=== PATIENT | male | born 1965 | race Caucasian/White ===

== ENCOUNTER → 2019-08-30 11:26 | Outpatient (CLI) | payer OTHER, SELFPAY ==
[2019-08-30 11:49] LABS: RBC Urine None Seen (0-5/HPF); WBC Urine None Seen (0-5/HPF)
[2019-08-30 12:44] LABS: Add Manual Diff / Slide Review NO; Basophils Absolute Auto 100 /uL (0-100); Eosinophils Absolute Auto 200 /uL (0-450); Eosinophils Percent Auto 2.3 % (2-4); Hematocrit 44.9 % (41-53); Hemoglobin 14.9 g/dL (13.5-17.5); Lymphocytes Absolute Auto 2600 /uL (1100-4500); Lymphocytes Percent Auto 31.7 % (25-40); Mean Corpuscular HGB Conc 33.2 % (30-36); Mean Corpuscular Hemoglobin 28.8 PG (26-34); Mean Corpuscular Volume 86.9 fL (80-100); Monocytes Absolute Auto 600 /uL (0-900); Monocytes Percent Auto 7.9 % (3-14); Neutrophils Absolute Auto 4700 /uL (1500-7000); Neutrophils Percent Auto 57.1 % (50-75); Platelet Count 263 X10^3/uL (150-400); Red Blood Cell Count 5.17 X10^6/uL (4.5-5.9); Red Cell Distribution Width 13.7 % (11.6-14.8); White Blood Cell Count 8.2 X10^3/uL (4.5-11.0)
[2019-08-30 13:04] LABS: Appearance Urine UA CLEAR; Bilirubin Urine UA NEGATIVE (NEGATIVE); Color Urine UA YELLOW; Glucose Urine UA NEGATIVE (Negative); Ketones Urine UA NEGATIVE (NEGATIVE); Leukocyte Esterase Urine UA NEGATIVE (NEGATIVE); Nitrite Urine UA NEGATIVE (Negative); Occult Blood Urine UA NEGATIVE (Negative); Protein Urine UA NEGATIVE (Negative); Urobilinogen Urine UA 0.2 E.U./dL (0.2); pH Urine UA 5.5 (4.5-8.0)
[2019-08-30 13:19] LABS: Hemoglobin A1C% w Est Avg Glu 5.3 % (4.0-6.0)
[2019-08-30 13:53] LABS: BUN Creatinine Ratio 23.8 (6-22); Blood Urea Nitrogen 19 mg/dL (9-20); Calcium 9.8 mg/dL (8.4-10.2); Carbon Dioxide 25 mmol/L (22-32); Chloride 103 mmol/L (98-107); Estimated Glomerular Filt Rate > 60.0 mL/min (>60); Glucose 96 mg/dL (70-100); HEMOLYSIS 16 (0-50); Sodium 139 mmol/L (137-145)
[2019-08-30 13:57] LABS: Bacteria Urine Occasional (0-1); Culture Indicated Urine Cult Not Indicated; Squamous Epithelial Cell Urine 0-1 /HPF (0-5/HPF)
== END ==
PROVIDERS: Family Provider Family Medicine; PCP Family Medicine; Visit Provider Orthopaedic Surgery
DX: Z01.818 Encounter for other preprocedural examination (principal); Z01.812 Encounter for preprocedural laboratory examination; N39.9 Disorder of urinary system, unspecified; Z13.1 Encounter for screening for diabetes mellitus; R73.9 Hyperglycemia, unspecified
CPT/HCPCS: 36415; 80048; 81001; 83036; 85025; 93005

== ENCOUNTER 2019-10-05 09:38 | Inpatient (IN) | payer OTHER, SELFPAY ==
[2019-09-26 07:34] VITALS: BMI 34.2
[2019-10-05] VITALS (18 sets, daily range): BP systolic 95–132; BP diastolic 48–81; PULSE 49–65; RESP 8–19; TEMP 35.8–36.6; O2SAT 90–99; BMI 34.2
--- NOTE | 2019-10-05 | DI.RAD.S_ITS ---
PROCEDURE: XR PELVIS 1-2V INDICATIONS: INTER OP RIGHT HIP ARTHROPLASTY TECHNIQUE: Intra-operative view of the pelvis and hip acquired. COMPARISON: None. FINDINGS: Bones: Intraoperative devices prior to placement of arthroplasty prostheses are in expected positions. No fractures or suspicious bony lesions. Soft tissues: Overlying surgical retractors are present, along with other intraoperative changes. IMPRESSION: Normal alignment in preparation for placement of final components of right total hip arthroplasty. Dictated by: Grey Hardy M.D. on 10/05/2019 at 15:42 Approved by: Grey Hardy M.D. on 10/05/2019 at 15:42
--- NOTE | 2019-10-05 06:00 | DI.RAD.S_ITS ---
PROCEDURE: XR HIP W PEL IF DONE RT 2V INDICATIONS: post op films TECHNIQUE: AP pelvis with lateral view(s) of the right hip(s). COMPARISON: [facility], , XR PELVIS 1-2V, 10/05/2019, 14:30. FINDINGS: Bones: No fractures or dislocations. Pelvic ring appears intact. No suspicious bony lesions. Right hip arthroplasty is present. Postsurgical changes are noted. Hardware is intact. Soft tissues: The visualized bowel gas pattern is normal. No suspicious soft tissue calcifications. IMPRESSION: Right hip arthroplasty and postsurgical changes as above. Dictated by: Chyna Kelsey M.D. on 10/05/2019 at 16:26 Approved by: Chyna Kelsey M.D. on 10/05/2019 at 16:26
[2019-10-05] MEDS: PREGABALIN 75 MG CAPSULE PO (10:35)
[2019-10-05] MEDS: MELOXICAM 7.5 MG TABLET 15 MG PO (10:35)
[2019-10-05] MEDS: ACETAMINOPHEN 325 MG TABLET 975 MG PO (10:36)
[2019-10-05] MEDS: LACTATED RINGERS 1,000 ML 42 ML IV ×2 (10:53→14:58)
[2019-10-05] MEDS: VANCOMYCIN 1,000 MG/200 ML PIGGYBACK 200 MG IV (11:03)
--- NOTE | 2019-10-05 12:12 | PM.PREOP ---
Pre-operative Note Interval Note History & Physical reviewed/Exam performed by Physician: Yes Changes to H&P: No
--- NOTE | 2019-10-05 12:32 | PM.OP.1 ---
Operative Date/Time/Diagnoses Date of procedure: 10/05/19 Time of procedure: 12:57 Pre-op diagnosis: Severe right hip osteoarthritis Post-op diagnosis: same Procedure & Clinicians Procedure: Right total hip arthroplasty Same procedure as scheduled: Yes Indications: The patient has had progressively worsening right hip pain with radiographic changes consistent with arthritis. Non-operative management has failed and the patient has requested total hip replacement. The risks, benefits and alternatives to surgery were discussed with the patient prior to proceeding. Risks discussed included, but were not limited to, failure to relieve pain, leg length discrepancy, dislocation, stiffness, infection, nerve damage, deep venous thrombosis, pulmonary embolism, stroke, coma, heart attack, permanent paralysis and , as well as the potential need for eventual revision of the prosthetic. Surgeon: Faith Oh Dry Cleaning Attendant: Emilie White Anesthesia Type: General and Spinal Operative Notes Findings: Severe right hip osteoarthritis, good stability Closure Type: primary Specimen(s): none sent Prosthetic devices, grafts, tissues, transplants, or devices: Oh and Nephew 5 anthology stem standard offset, R3 cup 58 by 36, 36 by +0, 2 screws 15mm Applied: drain(s) Estimated Blood Loss (mL): 250 Blood products transfused: none Procedure in detail: The patient was seen in the pre-operative area, where the patient identified the right hip as the operative site and this was marked with my initials. The patient received pre-operative antibiotics and was taken to the operating room and placed on the operative table in the left lateral decubitus position after satisfactory anesthesia. A multimedia services coordinator out was performed. The right leg was prepared from the ankle to the iliac crest with ChloroPrep in the usual fashion and draped through sterile drapes. The hip was approached through an approximately 20 cm incision centered over the greater trochanter and curving gently posteriorly as it went proximally. This was carried sharply to the fascia debora, which was divided and retracted with a self retaining retractor. The trochanteric bursa was excised with care being taken to avoid the sciatic nerve, which was identified and protected throughout the case. The short external rotators were incised and the capsulomuscular flap was raised and tagged for later repair. The hip was dislocated, and a femoral neck osteotomy performed approximately 15 mm above the lesser trochanter. Retractors were placed around the femur. The canal was opened with a box cutting osteotome, followed by a T handled reamer and a lateralizing reamer. The chili pepper broach was then used, followed by sequential broaching until there was good stability of the broach in the femur. Retractors were placed to expose the acetabulum. The labrum and central soft tissues were removed. Reaming was performed initially going up in 2 mm increments, then 1 mm increments until good bite was obtained with an odd sized reamer. The cup 1 mm larger than the last reamer was then inserted using the appropriate anteversion guides. Bone graft was packed into a fairly large anterior cyst in the acetabulum. The cup was stabilized with 2 screws both of which had good bite. A trial neutral liner was placed. The broach was placed in the canal. A trial head and neck were then placed and the hip relocated and checked for leg length and stability. An intraoperative film confirmed the component position and no evidence of fracture. The patient was stable in the position of sleep, of squatting, and could be put through a range of motion with 45 degrees internal rotation without dislocation. At 90 degrees flexion, internal rotation to 80 was possible before dislocation. This was felt to be satisfactory and the appropriate components were opened, and the trials were removed. The acetabular liner was impacted into position. The final stem was then impacted into the prepared femoral canal. A brief Betadine soak was performed while trialing with head options. The hip was meticulously irrigated with normal saline. Finally the femoral head was impacted onto the stem. The acetabulum was cleared of all material and the hip relocated one final time. The capsulomuscular flap was then repaired to the greater trochanter though an awl hole using the tag sutures. The short external rotators were repaired with a nonabsorbable suture. A deep drain was placed and brought out anteriorly. The fascia debora was closed with Vicryl. The subcutaneous layer was closed with barbed sutures and SteriStrips. An Aquacel Ag dressing was applied and the patient was taken to recovery having tolerated the procedure well. Complications: none Post-operative Condition: stable Disposition: Acute Care Plan for aftercare: The patient will be maintained on a standard total hip replacement protocol with weight bearing as tolerated and posterior hip precautions. The patient will receive Aspirin and sequential compression devices for DVT prophylaxis. The patient will be discharged home when safe for the home environment.
[2019-10-05] MEDS: CEFAZOLIN 2 GM/100 ML FROZ.PIGGY IV ×2 (12:55→21:18)
[2019-10-05] MEDS: TRANEXAMIC ACID 1,000 MG VIAL 1000 MG INJ (13:05)
--- NOTE | 2019-10-05 13:20 | SUR.OPER ---
Lateral on padded OR bed. Gel axillary roll. Arms secured on padded armboard with pillow supporting top arm. Padded hip positioner braces x4 - anterior and posterior chest and pelvis. Additional gel pad used anterior pelvis. Gel pad under bottom leg from knee to foot and secured with tape over sheet.
[2019-10-05] MEDS: BUPIVACAINE LIPOSOME 266 MG/20 ML VIAL INJ (13:27)
[2019-10-05] MEDS: BUPIVACAINE 0.25% W/ EPI 30 ML VIAL 60 ML INJ (13:27)
[2019-10-05] MEDS: EPINEPHrine 1 MG/ML AMPUL IM (13:29)
--- NOTE | 2019-10-05 16:16 | SUR.PHASEI ---
HV drain unclamped as per VVO from Dr. Oh. HV patent with red fluid.
--- NOTE | 2019-10-05 17:19 | SUR.PHASEI ---
Report called to Darian.
--- NOTE | 2019-10-05 17:35 | SUR.PHASEI ---
Patient transferred to the floor. Report given to Darian. VS stable. IV saline locked. Rt Hip drsg cdi. HV patent with minimal drainage. +pp x2, unable to move ino feet but reported normal sensation to right foot. Walker and belongings bag with patient. Spouse notified patient had been transferred to the room.
[2019-10-05] MEDS: LACTATED RINGERS 1,000 ML 125 ML IV (18:42)
[2019-10-05] MEDS: DOCUSATE 100 MG CAPSULE PO (21:18)
[2019-10-05] MEDS: IBUPROFEN 400 MG TABLET PO (21:18)
[2019-10-05] MEDS: ASPIRIN EC 81 MG TABLET PO (21:18)
[2019-10-05] MEDS: ACETAMINOPHEN 325 MG TABLET 650 MG PO (21:18)
[2019-10-06] MEDS: IBUPROFEN 400 MG TABLET PO ×4 (00:38→13:44)
[2019-10-06] MEDS: OXYCODONE IR 5 MG TABLET PO ×5 (01:06→14:01)
[2019-10-06] MEDS: LACTATED RINGERS 1,000 ML 125 ML IV (03:34)
[2019-10-06] MEDS: CEFAZOLIN 2 GM/100 ML FROZ.PIGGY IV (04:36)
[2019-10-06 04:54] VITALS: BP 102/61; PULSE 67; RESP 18; TEMP 37.3; O2SAT 96
[2019-10-06 05:49] LABS: Hematocrit 38.6 % (41-53); Hemoglobin 13.1 g/dL (13.5-17.5)
[2019-10-06 07:27] VITALS: BP 109/63; PULSE 67; RESP 16; TEMP 37.1; O2SAT 96
[2019-10-06] MEDS: ACETAMINOPHEN 325 MG TABLET 650 MG PO ×2 (08:08→13:45)
[2019-10-06] MEDS: DOCUSATE 100 MG CAPSULE PO (08:08)
[2019-10-06] MEDS: ASPIRIN EC 81 MG TABLET PO (08:08)
--- NOTE | 2019-10-06 10:30 | PT.IIE ---
Current Diagnoses Unilateral primary osteoarthritis, right hip (10/05/19) Pain in right hip (10/05/19) Surgery Performed Operation Date: 10/05/19 12:15 Actual Procedures p Total Hip Arthroplasty(Right) - Faith Oh MD Surgical History (Last Updated 09/26/19 @ 08:13 by Monica Banda, RN) History of colonoscopy (Acute) History of liver biopsy (Acute ~1995) Medical History (Last Updated 09/26/19 @ 08:11 by Monica Banda RN) Borderline hypertension (Acute) Cataract (Acute) Diverticulitis (Acute ~2016) Elevated WBCs (Acute ~1995) Kidney stones (Acute) Melanoma (Acute ~2016) Osteoarthritis (Acute) Pneumonia (Acute) Tingling of both feet (Acute) Physical Therapy Inpatient Evaluation/Re-Eval M1 PT/OT-IP Prior Functional Status Start: 10/06/19 09:17 Freq: NEEDED Status: Active Protocol: Document 10/06/19 10:16 AW (Rec: 10/06/19 10:30 AW [email or web address]) Medical Review Prior Functional Status Medical History Reviewed Yes Diet/Fluid Consistency Regular Communication WNL Mobility and Gait Prior to two weeks ago, pt was independent without assistive device. In the past two weeks , pain became bad enough that he was using a 4WW at all times Activities of Daily Living and IADL's Independent Social History Household Members spouse Living Arrangements House Number of Floors (Floors) Two Floors Number of Stairs To Enter/Railing? 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 He lives with his who is able to assist as needed without limitation. M2 PT-IP Current Condition Start: 10/06/19 09:17 Freq: NEEDED Status: Active Protocol: Document 10/06/19 10:16 AW (Rec: 10/06/19 10:30 AW [email or web address]) Physical Therapy Current Condition Current Condition Evaluation Date 10/06/19 Treatment Diagnosis s/p R LUZ with posterior approach, impaired mobility Precautions Posterior Hip Precautions No Hip Flexion > 90 degrees,No Hip Internal Rotation,No Hip Adduction Weight Bearing Status Weight Bearing Status Weight Bear as Tolerated M3 PT-IP Subjective Start: 10/06/19 09:17 Freq: NEEDED Status: Active Protocol: Document 10/06/19 10:16 AW (Rec: 10/06/19 10:30 AW [email or web address]) Subjective Physical Therapy Visit Type Type Initial Evaluation Visit Start Time 09:20 Visit Stop Time 10:00 Total Visit Minutes 40 Number of ANESTHESIOLOGIST AND CRITICAL CARE Visits 0 Physical Therapy Visit Comments Patient Comments Pt would like to get to the bathroom Patient Goals To go home today Therapy Pain Assessment Pain When Pain Assessed During Mobility Pain Present Pain Present Pain Reported Location Right Hip Intensity 2 Pain Management Techniques Apply Cold,Re-positioning, Timing of Activity with Medications M4 PT-IP Mobility and Gait Start: 10/06/19 09:17 Freq: NEEDED Status: Active Protocol: Document 10/06/19 10:16 AW (Rec: 10/06/19 10:30 AW [email or web address]) PT-Bed Mobility Assessment Supine to Sit Supine to Sit Independent Sit to Supine Sit to Supine Independent Scooting Scooting to Edge of Bed Independent PT-Transfer Assessment Sit to and From Stand Sit to and from Stand Standby Assistance Equipment Transfer Assistive Device Gait Belt,Front Wheeled Walker Transfers Transfer Destination Bed,Chair,Wheelchair,Bedside Commode Transfer Technique pt ambulated with FWW Transfer Ability Level of Assist Standby Assistance Comments Mobility Comments Pt performed bed mobility independently and required no more than SBA and min verbal cues regarding leg position during transfers with FWW. He demonstrated good safety awareness, frequently verbalizing his strategy before moving and taking care to move deliberately. He transferred to BSC, w/c, bed, and chair all with SBA. Gait Assessment Gait Gait Assistance Required: Standby Assistance Distance (Feet) 220 Able to Maintain Weight Bearing Status Yes During Gait Assistive Devices Assistive Device Gait Belt,Front Wheeled Walker Gait Deviations General Gait Pattern Antalgic,Decreased Feet Clearance Factors Limiting Gait Function Factors Limiting Gait Function Decreased Strength,Limited Range of Motion,Pain Comments Gait Comments Pt demonstrated good swing- through gait pattern without need for verbal cues. He was safe with the FWW, appropriately off-weighting the RLE as needed. Stair Climbing Assessment Evaluation Level of Assist On Stairs Standby Assistance Devices Stair Climbing Assistive Devices Left Railing Technique/Endurance Stair Climbing Direction Ascend and Descend Stair Climbing Technique Step to Step Number of Steps Climbed 3 Query Text: Stair Climbing Set # Repetitions (reps) 1 Comments Stair Climbing Comments Pt verbalized his sequencing prior to initiating stair navigation and followed through with accurate, safe patterning requiring SBA. PT-Balance Assessment Sitting Balance and Reactions Static Sitting Balance Ability Normal Dynamic Sitting Balance Ability Normal Standing Balance and Reactions Static Standing Balance Ability Good Dynamic Standing Balance Ability Good Device Used FWW M5 PT-IP Objective Assessments Start: 10/06/19 09:17 Freq: NEEDED Status: Active Protocol: Document 10/06/19 10:16 AW (Rec: 10/06/19 10:30 AW [email or web address]) Orientation Orientation/Cognition Level of Alertness Alert Orientation Name,Date,Place,Situation Language Function Ability No Deficits Noted Safety Awareness Understands Safety Issues Memory Description No Deficits Noted Gross Range of Motion Upper Extremity ROM Assessment Within Functional Limits Lower Extremity ROM Assessment Right Impaired Strength Upper Extremity Strength Assessment Within Functional Limits Lower Extremity Strength Assessment Right Impaired Comments Strength Comments LLE and BUE grossly 5/5 Sensation Assessment Sensation Gross Sensation WNL M6 PT-IP Treatment Start: 10/06/19 09:17 Freq: NEEDED Status: Active Protocol: Document 10/06/19 10:16 AW (Rec: 10/06/19 10:30 AW [email or web address]) Physical Therapy Treatment Exercises Exercises Ankle Pumps,Gluteal Sets,Quad Sets,Heel Slides Education Education Provided Precautions,Weight Bearing Status,Post-Op Packet,Safety Other Treatments Other Treatment Performed Reviewed PT plan of care, post -op exercises, weightbearing status, posterior hip precautions, and safe use of FWW. Answered pt's questions about getting in and out of tub at home. M7 PT-IP Assessment and Plan Start: 10/06/19 09:17 Freq: NEEDED Status: Active Protocol: Document 10/06/19 10:16 AW (Rec: 10/06/19 10:30 AW [email or web address]) PT Summary Assessment and Plan Potential Rehabilitation Potential Excellent Status of Condition at Evaluation Stable Summary Impairments Pain,ROM,Strength,Transfers, Gait Assessment Summary Pt is an active 54 yo man seen for PT evaluation on POD1 following R LUZ with posterior approach. Goals Bed Mobility Goal Independent Transfer Goal Independent,Front Wheeled Walker Gait Goal Independent,Front Wheel Walker Gait Distance 300 Other Goals up/down 2 steps with L rail ascending SBA Days to Meet Goals 1 Frequency of Treatment Frequency Of Treatment Twice a Day Treatment Plan Physical Therapy Treatment Plan Bed Mobility Training,Transfer Training,Gait Training, Therapeutic Exercise,Balance Retraining,Post Op Education, Discharge Planning,Hot or Cold Pack,Neuromuscular Re-ed, Coordination Retraining,Manual Therapy Other Recommendations and Next Treatment review precautions, repeat Focus stairs Recommendations To Nursing Amount of Assist Needed Standby Assistance Discharge Recommendations PT Discharge Recommendations Home with Assistance, Outpatient PT
[2019-10-06 11:00] VITALS: BP 105/55; PULSE 65; RESP 16; TEMP 36.9; O2SAT 94
--- NOTE | 2019-10-06 11:22 | CM.DANOTE ---
DCP: Case received, EMR reviewed and met with patient. Spouse, Frank, was also in the room. Introduced self and role. Was able to obtain baseline health and activity information from patient, prior to his having surgery. DCP assessment completed with information currently available. Patient is a 54 year old male who admitted yesterday morning to the care of the orthopedic team. PCP: Dr. Mendoza. Payer: confirmed: [place]. Patient came to the hospital for a surgical procedure. He had a right hip arthroplasty. Patient on the [employer] path program. Prior to surgery, he has been using a FWW at home, which he has in his room. Met with patient and his . He is alert and oriented, has already been up with P.T. He also has outpatient P.T. set up. He resides in [place], with his , Frank, who will be helping him out when he goes home. P: Patient should be able to go home when he is medically stable and cleared by P.T. Nichole Trujillo RN/Instrument Repair Supervisor
--- NOTE | 2019-10-06 11:43 | PM.PN.1 ---
Exam Vital Signs (past 8 hours): - 10/06/19 04:54 10/06/19 07:27 Temperature 99.1 F 98.7 F Pulse Rate 67 67 Respiratory Rate 18 16 Blood Pressure 102/61 109/63 Pulse Oximetry 96 96 Oxygen Delivery Method Room Air Oxygen Flow Rate 0 Objective Labs Result Diagrams: 10/06/19 05:35 Labs: Laboratory Results - last 24 hr 10/06/19 05:35 Hgb 13.1 L Hct 38.6 L Assessment & Plan Assessment & Plan narrative: Patient is admitted after surgery. Patient has been stable and progressing with physical therapy. Patient is neurovascularly intact on exam. Patient has no signs or symptoms of DVT. Patient's dressing is clean dry and intact. Patient is postop day 1 status post right total hip arthroplasty. Patient is progressing well with physical therapy has been cleared to be discharged to home. Patient will be discharged today to home. Quality VTE Deep Vein Thrombosis/Pulmonary Embolism Present on Admission: No
--- NOTE | 2019-10-06 14:03 | PC.NURSE ---
discharge to home with rx for oxycodone and plan for pt/post op visits, pt showered following removal of hemovac ( 60cc bloody output) and tolerated pt well - answered all questions to pt and his spouses satisfaction-
== END 2019-10-06 14:05 | disposition home or self-care (01) | DRG 470 ==
PROVIDERS: Admitting Provider Orthopaedic Surgery; Family Provider Family Medicine; PCP Family Medicine; Visit Provider Orthopaedic Surgery
PROC: 0SR90JZ Replacement of Right Hip Joint with Synthetic Substitute, Open Approach (ICD-10-PCS; CPT 27130; principal; 2019-10-05 12:15)
DX: M16.11 Unilateral primary osteoarthritis, right hip (principal)
CPT/HCPCS: 36415; 72170; 73502; 85014; 85018; 94762; 97161; 97530; C1776; C9290; J0171; J0690; J1100; J2250; J2274; J2405; J2704; J3010

== ENCOUNTER → 2023-01-05 07:04 | Outpatient (CLI) | payer OTHER, SELFPAY ==
[2022-12-03 16:05] VITALS: BMI 34.2
[2023-01-05 07:43] LABS: Appearance Urine UA CLEAR; Bilirubin Urine UA NEGATIVE (NEGATIVE); Color Urine UA YELLOW; Glucose Urine UA NEGATIVE (Negative); Ketones Urine UA NEGATIVE (NEGATIVE); Leukocyte Esterase Urine UA NEGATIVE (NEGATIVE); Nitrite Urine UA NEGATIVE (Negative); Occult Blood Urine UA NEGATIVE (Negative); Protein Urine UA NEGATIVE (Negative); Specific Gravity Urine UA 1.025 (1.000-1.035); Urobilinogen Urine UA 0.2 E.U./dL (0.2)
[2023-01-05 07:48] LABS: Add Manual Diff / Slide Review NO; Basophils Absolute Auto 100 /uL (0-100); Basophils Percent Auto 0.8 % (0-2); Eosinophils Absolute Auto 200 /uL (0-450); Hematocrit 45.9 % (41-53); Hemoglobin 15.6 g/dL (13.5-17.5); Lymphocytes Absolute Auto 2700 /uL (1100-4500); Lymphocytes Percent Auto 34.6 % (25-40); Mean Corpuscular HGB Conc 33.9 % (30-36); Mean Corpuscular Hemoglobin 29.2 PG (26-34); Mean Corpuscular Volume 86.1 fL (80-100); Monocytes Absolute Auto 800 /uL (0-900); Monocytes Percent Auto 10.4 % (3-14); Neutrophils Absolute Auto 4100 /uL (1500-7000); Neutrophils Percent Auto 51.2 % (50-75); Platelet Count 236 X10^3/uL (150-400); Red Blood Cell Count 5.34 X10^6/uL (4.5-5.9); Red Cell Distribution Width 13.4 % (11.6-14.8); White Blood Cell Count 7.9 X10^3/uL (4.5-11.0)
[2023-01-05 07:49] LABS: BUN Creatinine Ratio 23.9 (6-22); Blood Urea Nitrogen 17 mg/dL (9-20); Carbon Dioxide 25 mmol/L (22-32); Chloride 102 mmol/L (98-107); Estimated Glomerular Filt Rate > 60 mL/min (>60); Glucose 90 mg/dL (70-100); HEMOLYSIS 31 (0-50); Potassium 4.2 mmol/L (3.4-5.1); Sodium 137 mmol/L (137-145)
[2023-01-05 08:05] LABS: RBC Urine None Seen (0-5/HPF)
[2023-01-05 08:06] LABS: Bacteria Urine Occasional (0-1); Culture Indicated Urine Cult Not Indicated; Squamous Epithelial Cell Urine 0-1 /HPF (0-5/HPF); WBC Urine 0-1/HPF (0-5/HPF)
[2023-01-05 08:26] LABS: Hemoglobin A1C% w Est Avg Glu 5.4 % (4.0-6.0)
== END ==
PROVIDERS: Family Provider Family Medicine; PCP Family Medicine; Referring Provider Orthopaedic Surgery; Visit Provider Orthopaedic Surgery
DX: Z01.818 Encounter for other preprocedural examination (principal); Z01.812 Encounter for preprocedural laboratory examination; R73.9 Hyperglycemia, unspecified; N39.0 Urinary tract infection, site not specified
CPT/HCPCS: 36415; 80048; 81001; 83036; 85025; 93005

== ENCOUNTER 2023-02-17 06:03 | Day surgery (SDC) | payer OTHER, SELFPAY ==
[2022-12-03 16:05] VITALS: BMI 34.2
[2023-01-14 13:35] VITALS: BMI 36.3
[2023-02-17] VITALS (12 sets, daily range): BP systolic 110–169; BP diastolic 55–85; PULSE 52–74; RESP 11–19; TEMP 36.1–37.1; O2SAT 84–97; BMI 36.3
--- NOTE | 2023-02-17 06:00 | DI.RAD.S_ITS ---
PROCEDURE: XR PELVIS 1-2V INDICATIONS: prosthesis placement/inner op TECHNIQUE: Intra-operative view of the pelvis and hip acquired. COMPARISON: [facility], CR, XR HIP W PEL IF DONE LT 2V, 02/17/2023, 10:26. [facility] [place], CR, XR PELVIS 1 OR 2 VIEWS, 01/16/2023, 14:41. FINDINGS: Bones: Intraoperative devices prior to placement of arthroplasty prostheses are in expected positions. No fractures or suspicious bony lesions. Soft tissues: Overlying surgical retractors are present, along with other intraoperative changes. IMPRESSION: Right hip arthroplasty. Dictated by: Irene Friedman M.D. on 02/17/2023 at 12:22 Approved by: Irene Friedman M.D. on 02/17/2023 at 12:23
[2023-02-17] MEDS: PREGABALIN 75 MG CAPSULE PO (06:50)
[2023-02-17] MEDS: ACETAMINOPHEN 325 MG TABLET 975 MG PO (06:50)
[2023-02-17] MEDS: CELECOXIB 200 MG CAPSULE PO (06:53)
[2023-02-17] MEDS: LACTATED RINGERS 1,000 ML 42 ML IV (06:53)
[2023-02-17] MEDS: VANCOMYCIN 1,000 MG/200 ML PIGGYBACK 200 MG IV (06:53)
--- NOTE | 2023-02-17 07:39 | PM.PREOP ---
Pre-operative Note Interval Note History & Physical reviewed/Exam performed by Physician: Yes Changes to H&P: No
[2023-02-17 07:40] LABS: COVID19 -Nasal RAPID Negative (Negative)
--- NOTE | 2023-02-17 07:40 | P.OP_ITS ---
Operative Date/Time/Diagnoses Date of procedure: 02/17/23 Time of procedure: 07:55 Pre-op diagnosis: Left hip osteoarthritis Post-op diagnosis: same Procedure & Clinicians Procedure: Left total hip arthroplasty posterior approach Same procedure as scheduled: Yes Indications: The patient has had progressively worsening left hip pain with radiographic changes consistent with arthritis. Non-operative management has failed and the patient has requested total hip replacement. The risks, benefits and alternatives to surgery were discussed with the patient prior to proceeding. Risks discussed included, but were not limited to, failure to relieve pain, leg length discrepancy, dislocation, stiffness, infection, nerve damage, deep venous thrombosis, pulmonary embolism, stroke, coma, heart attack, permanent paralysis and , as well as the potential need for eventual revision of the prosthetic. Surgeon: Faith Oh Button Station Worker: Gigi Jernigan Anesthesia Type: General and Spinal Operative Notes Findings: Severe left hip osteoarthritis, adequate stability Closure Type: primary Specimen(s): none sent Prosthetic devices, grafts, tissues, transplants, or devices: Oh and nephew size 6 standard offset anthology, 56 mm R3 cup, neutral poly liner, one 6.5 mm screw, 36 by-3 Oxinium head Estimated Blood Loss (mL): 250 Blood products transfused: none Procedure in detail: The patient was seen in the pre-operative area, where the patient identified the left hip as the operative site and this was marked with my initials. The patient received pre-operative antibiotics and was taken to the operating room and placed on the operative table in the right lateral decubitus position after satisfactory anesthesia. A family preservation worker out was performed. The left leg was prepared from the ankle to the iliac crest with ChloroPrep in the usual fashion and draped through sterile drapes. The hip was approached through an approximately 20 cm incision centered over the greater trochanter and curving gently posteriorly as it went proximally. This was carried sharply to the fascia debora, which was divided and retracted with a self retaining retractor. The trochanteric bursa was excised with care being taken to avoid the sciatic nerve, which was identified and protected throughout the case. The short external rotators were incised and the capsulomuscular flap was raised and tagged for later repair. The hip was dislocated, and a femoral neck osteotomy performed approximately 15 mm above the lesser trochanter. Retractors were placed around the femur. The canal was opened with a box cutting osteotome, followed by a T handled reamer and a lateralizing reamer. The chili pepper broach was then used, followed by sequential broaching until there was good stability of the broach in the femur. Retractors were placed to expose the acetabulum. The labrum and central soft tissues were removed. Reaming was performed initially going up in 2 mm increments, then 1 mm increments until good bite was obtained with an odd sized reamer. The cup 1 mm larger than the last reamer was then inserted using the appropriate anteversion guides. It was further stabilized with a single screw. A trial neutral liner was placed. The broach was placed in the canal. A trial head and neck were then placed and the hip relocated and checked for leg length and stability. An intraoperative film confirmed the component position and no evidence of fracture. The patient was stable in the position of sleep, of squatting, and could be put through a range of motion with 45 degrees internal rotation without dislocation. At 90 degrees flexion, internal rotation to 70? was possible before dislocation. This was felt to be satisfactory and the appropriate components were opened, and the trials were removed. The acetabular liner was impacted into position. The final stem was then impacted into the prepared femoral canal. A brief Betadine soak was performed while trialing with head options. The hip was meticulously irrigated with normal saline. Finally the femoral head was impacted onto the stem. The acetabulum was cleared of all material and the hip relocated one final time. The capsulomuscular flap was then repaired to the greater trochanter though an awl hole using the tag sutures. The short external rotators were repaired with a nonabsorbable suture. The fascia debora was closed with Vicryl. The subcutaneous layer was closed with barbed sutures and SteriStrips. An Aquacel Ag dressing was applied and the patient was taken to recovery having tolerated the procedure well. Complications: none Post-operative Condition: stable Disposition: Acute Care Plan for aftercare: The patient will be maintained on a standard total hip replacement protocol with weight bearing as tolerated and posterior hip precautions. The patient will receive Aspirin and sequential compression devices for DVT prophylaxis. The patient will be discharged home when safe for the home environment.
--- NOTE | 2023-02-17 07:45 | PM.HP.1 ---
History of Present Illness History of Present Illness Date Patient Seen: 02/17/23 Time Patient Seen: 07:45 Chief complaint: Left LUZ *OPB* Narrative: He notes ongoing constant left hip pain. Has a history of a right total hip arthroplasty in 2019. His health has otherwise been stable. Please see previous H and P. PFSH Medical History Borderline hypertension Cataract COVID-19 virus infection (2019) Diverticulitis (~2016) Elevated WBCs (~1995) HLD (hyperlipidemia) Kidney stones Melanoma (~2016) Osteoarthritis Pneumonia Tingling of both feet Surgical History History of colonoscopy History of liver biopsy (~1995) History of total right hip replacement (10/05/19) Social History household members: spouse Smoking Status: Never smoker alcohol intake: never Meds Home Medications and Allergies Home Medications Medication Instructions Recorded Confirmed Type acetaminophen 500 mg tablet 500 mg PO Q4H PRN Breakthrough 10/05/19 02/17/23 History (Tylenol Extra Strength) Pain, Moderate celecoxib 200 mg capsule 200 mg PO DAILY 01/14/23 02/17/23 History rosuvastatin 5 mg tablet 5 mg PO BEDTIME 01/14/23 02/17/23 History Allergies Allergy/AdvReac Type Severity Reaction Status Date / Time alcohol Allergy Severe Alcohol in Verified 02/17/23 06:44 products-rash, throat swelling Review of Systems Review of Systems Narrative: No recent change feeling well other than hip pain Exam Vital Signs (past 8 hours): - 02/17/23 07:02 Temperature 97.7 F Pulse Rate 62 Respiratory Rate 16 Blood Pressure 169/85 H Pulse Oximetry 97 Oxygen Delivery Method Room Air Oxygen Delivery Method Room Air Narrative Exam Narrative: HEENT is benign lungs are clear cor regular rate and rhythm abdomen is slightly obese but benign his left hip shows restricted range of motion is skin is intact calves are soft bilaterally is neurologically intact distally Objective Labs Labs: Laboratory Results - last 24 hr 02/17/23 07:24 SARS-CoV-2 (PCR) Negative x-rays show severe left hip osteoarthritis, right total hip arthroplasty acceptable alignment no loosening Assessment & Plan Assessment and plan (1) Hip arthritis: Status: Acute Plan Recommended left total hip arthroplasty. The options risks benefits and complications are reviewed. He did well after right total hip arthroplasty. Did have a significant cyst on his right hip. Options risks benefits and complications discussed in detail. Consents and wants to proceed with a left total hip arthroplasty.
[2023-02-17] MEDS: CEFAZOLIN VIAL 1 GM in SODIUM CHLORIDE 0.9% 100 ML IV (08:09)
[2023-02-17] MEDS: CEFAZOLIN 2 GM/100 ML PREMIX 100 ML IV (08:09)
[2023-02-17] MEDS: TRANEXAMIC ACID 1,000 MG VIAL 1000 MG INJ ×2 (08:19→09:49)
--- NOTE | 2023-02-17 08:47 | SUR.OPER ---
Lateral on padded OR bed. Gel axillary roll. Arms secured on padded armboard with two pillows supporting top arm. Gel pad under right arm. Padded hip positioner braces x4 - anterior and posterior chest and pelvis. Additional gel pad used anterior pelvis. Gel pad under bottom leg from knee to foot and secured with tape over sheet.
[2023-02-17] MEDS: BUPIVACAINE LIPOSOME 266 MG/20 ML VIAL INJ (09:00)
[2023-02-17] MEDS: BUPIVACAINE 0.25% (PF) 60 ML, EPINEPHrine 0.3 MG INJ (09:56)
[2023-02-17] MEDS: SODIUM CHLORIDE IRRIG SOLUTION 250 ML, POVIDONE-IODINE SPONGE STICKS 1 APPLIC IRR (10:00)
--- NOTE | 2023-02-17 11:00 | DI.RAD.S_ITS ---
PROCEDURE: XR HIP W PEL IF DONE LT 2V INDICATIONS: POST LEFT HIP TECHNIQUE: AP pelvis and lateral view of the left hip acquired. COMPARISON: [facility], [facility], XR HIP W PEL IF DONE RT 2V, 10/05/2019, 15:56. FINDINGS: Bones: Patient is status post bilateral hip arthroplasty, with hardware components in expected positions. The hip joint appears congruent. The visualized bony structures appear intact. Soft tissues: Overlying postoperative changes are noted. No suspicious soft tissue densities. IMPRESSION: Interval placement of a left total hip arthroplasty, which appears normal. Dictated by: Ventura Aguiar M.D. on 02/17/2023 at 13:31 Approved by: Ventura Aguiar M.D. on 02/17/2023 at 13:31
[2023-02-17] MEDS: LACTATED RINGERS 1,000 ML 100 ML IV (11:23)
[2023-02-17] MEDS: ACETAMINOPHEN 325 MG TABLET 650 MG PO ×2 (11:23→16:55)
--- NOTE | 2023-02-17 11:25 | PT.IIE ---
Current Diagnoses Unilateral primary osteoarthritis, unspecified hip (02/17/23) Unilateral primary osteoarthritis, left hip (02/17/23) Pain in right hip (02/17/23) Surgery Performed Operation Date: 02/17/23 07:45 Actual Procedures p Total Hip Arthroplasty posterior(Left) - Faith Oh MD Surgical History (Last Reviewed 02/17/23 @ 07:46 by Faith Oh MD) History of colonoscopy History of liver biopsy (~1995) History of total right hip replacement (10/05/19) Medical History (Last Reviewed 02/17/23 @ 07:46 by Faith Oh MD) Borderline hypertension Cataract COVID-19 virus infection (2019) Diverticulitis (~2016) Elevated WBCs (~1995) HLD (hyperlipidemia) Kidney stones Melanoma (~2016) Osteoarthritis Pneumonia Tingling of both feet Physical Therapy Inpatient Evaluation/Re-Eval M1 PT/OT-IP Prior Functional Status Start: 02/17/23 11:25 Freq: NEEDED Status: Active Protocol: Document 02/17/23 13:39 TH (Rec: 02/17/23 13:50 TH [id number]) Medical Review Prior Functional Status Medical History Reviewed Yes: Posterior LUZ Left/ Right post. LUZ last year Mobility and Gait IND without AD Activities of Daily Living and IADL's IND Prior Functional Level (Other details) IND Social History Household Members spouse Living Arrangements House Number of Floors (Floors) One Floor Number of Stairs To Enter/Railing? 3 steps /one rail Home Environment Standard Height Toilet Home Equipment Four Wheel Walker,Raised Toilet Seat w/Armrests,Shower Seat with Backrest Employment Status Forest Worker Employed M2 PT-IP Current Condition Start: 02/17/23 11:25 Freq: NEEDED Status: Active Protocol: Document 02/17/23 13:39 TH (Rec: 02/17/23 13:50 TH [id number]) Physical Therapy Current Condition Current Condition Evaluation Date 02/17/23 Treatment Diagnosis POst op LUZ left M3 PT-IP Subjective Start: 02/17/23 11:25 Freq: NEEDED Status: Active Protocol: Document 02/17/23 13:39 TH (Rec: 02/17/23 13:50 TH [id number]) Subjective Physical Therapy Visit Type Type Initial Evaluation Visit Start Time 01:00 Visit Stop Time 01:30 Total Visit Minutes 30 Notes Pt cleared for PT by nursing Number of WEB SITE ADMIN Visits 0 Physical Therapy Visit Comments Patient Comments Pt reported Legs and bottom still numb. Therapy Pain Assessment Pain Present Pain Present Denied Pain Location Left Hip Intensity 0 Scale Used Numeric (0 - 10) M4 PT-IP Mobility and Gait Start: 02/17/23 11:25 Freq: NEEDED Status: Active Protocol: Document 02/17/23 13:39 TH (Rec: 02/17/23 13:50 TH [id number]) PT-Bed Mobility Assessment Rolling Level of Assist Maximal Assistance Supine to Sit Supine to Sit Maximum Assistance Sit to Supine Sit to Supine 2 Person Assistance Scooting Scooting to Edge of Bed Minimal Assistance PT-Transfer Assessment Comments Mobility Comments Unbale to mobilize due to LE numbness Gait Assessment Comments Gait Comments unable Stair Climbing Assessment Comments Stair Climbing Comments unable PT-Balance Assessment Sitting Balance and Reactions Static Sitting Balance Ability Good Dynamic Sitting Balance Ability Fair M5 PT-IP Objective Assessments Start: 02/17/23 11:25 Freq: NEEDED Status: Active Protocol: Document 02/17/23 13:39 TH (Rec: 02/17/23 13:50 TH [id number]) Orientation Orientation/Cognition Level of Alertness Alert Orientation Name,Place,Situation Gross Range of Motion Upper Extremity ROM Assessment Within Functional Limits Lower Extremity ROM Assessment Within Functional Limits Strength Upper Extremity Strength Assessment Within Functional Limits Comments Strength Comments LEs numb unable to formally assess Coordination Assessment Gross Coordination Gross Coordination WNL Sensation Assessment Sensation Sensation Description Numbness M6 PT-IP Treatment Start: 02/17/23 11:25 Freq: NEEDED Status: Active Protocol: Document 02/17/23 13:39 TH (Rec: 02/17/23 13:50 TH [id number]) Physical Therapy Treatment Exercises Exercises Ankle Pumps Education Education Provided Precautions Other Treatments Other Treatment Performed handout provided for post. LUZ precautions M7 PT-IP Assessment and Plan Start: 02/17/23 11:25 Freq: NEEDED Status: Active Protocol: Document 02/17/23 13:39 TH (Rec: 02/17/23 13:50 TH [id number]) PT Summary Assessment and Plan Potential Rehabilitation Potential Excellent Status of Condition at Evaluation Stable Summary Impairments Activity Tolerance Assessment Summary Pt presents with werakness and numbness post op LUZ. Pt will benefit from further PT to prepare pt for home dc. Goals Bed Mobility Goal Minimal Assistance Transfer Goal Independent Gait Goal Standby Assistance Gait Distance 100 + feet Other Goals up/down 3 steps with step too pattern using rail SBA Days to Meet Goals 5 Frequency of Treatment Frequency Of Treatment Twice a Day Treatment Plan Physical Therapy Treatment Plan Bed Mobility Training,Transfer Training,Gait Training, Therapeutic Exercise,Balance Retraining,Post Op Education, Neuromuscular Re-ed,Manual Therapy Precautions Posterior Hip Precautions No Hip Flexion > 90 degrees,No Hip Internal Rotation,No Hip Adduction Recommendations To Nursing Amount of Assist Needed 1 Person Assist Discharge Recommendations PT Discharge Recommendations Home with Assistance Equipment Needed for Home Before recommend FWW/ pt has 4WW Discharge Transportation Needs at Discharge Private Vehicle
[2023-02-17] MEDS: OXYCODONE IR 5 MG TABLET PO ×2 (11:56→15:26)
--- NOTE | 2023-02-17 14:17 | CM.DPNOTE ---
DCP Note According to PT- Patient expected to discharge home w.spouse POD1. Patient has hx hip repair and has all DME needed CM team will plan to follow closely in case any DC needs or concerns arise JW
[2023-02-17] MEDS: CEFAZOLIN VIAL 3 GM in SODIUM CHLORIDE 0.9% 100 ML IV (15:29)
[2023-02-17] MEDS: hydrOXYzine pamoate 25 MG CAPSULE PO (16:55)
[2023-02-17] MEDS: OXYCODONE IR 10 MG TABLET PO ×2 (18:20→20:58)
[2023-02-17] MEDS: ASPIRIN EC 81 MG TABLET PO (20:58)
[2023-02-17] MEDS: DOCUSATE 100 MG CAPSULE PO (20:59)
[2023-02-17] MEDS: ATORVASTATIN 20 MG TABLET 10 MG PO (20:59)
[2023-02-18] MEDS: ACETAMINOPHEN 325 MG TABLET 650 MG PO ×3 (00:13→11:15)
[2023-02-18] MEDS: CEFAZOLIN VIAL 3 GM in SODIUM CHLORIDE 0.9% 100 ML IV (00:14)
[2023-02-18] MEDS: OXYCODONE IR 10 MG TABLET PO ×3 (01:24→11:19)
[2023-02-18] MEDS: hydrOXYzine pamoate 25 MG CAPSULE PO ×3 (02:37→12:08)
[2023-02-18 05:32] VITALS: BP 127/57; PULSE 68; RESP 18; TEMP 36.5; O2SAT 97
[2023-02-18 06:22] LABS: Hematocrit 39.2 % (41-53); Hemoglobin 13.1 g/dL (13.5-17.5)
--- NOTE | 2023-02-18 07:01 | PM.DS.1 ---
History of Present Illness History of Present Illness Date Patient Seen: 02/18/23 Time Patient Seen: 07:01 Chief complaint: Left LUZ *OPB* Narrative: Operative Date/Time/Diagnoses Date of procedure: 02/17/23 Time of procedure: 07:55 Pre-op diagnosis: Left hip osteoarthritis Post-op diagnosis: same Procedure & Clinicians Procedure: Left total hip arthroplasty posterior approach Same procedure as scheduled: Yes Indications: The patient has had progressively worsening left hip pain with radiographic changes consistent with arthritis. Non-operative management has failed and the patient has requested total hip replacement. The risks, benefits and alternatives to surgery were discussed with the patient prior to proceeding. Risks discussed included, but were not limited to, failure to relieve pain, leg length discrepancy, dislocation, stiffness, infection, nerve damage, deep venous thrombosis, pulmonary embolism, stroke, coma, heart attack, permanent paralysis and , as well as the potential need for eventual revision of the prosthetic. Surgeon: Faith Oh Retail Account Specialist: Gigi Jernigan Anesthesia Type: General and Spinal Operative Notes Findings: Severe left hip osteoarthritis, adequate stability Closure Type: primary Specimen(s): none sent Prosthetic devices, grafts, tissues, transplants, or devices: Oh and nephew size 6 standard offset anthology, 56 mm R3 cup, neutral poly liner, one 6.5 mm screw, 36 by-3 Oxinium head Estimated Blood Loss (mL): 250 Blood products transfused: none Discharge Providers Provider Discharge Date: 02/18/23 Primary care physician: Brian Mendoza MD Consults: 02/17/23 06:00 Consult to Anesthesiology Routine Comment: Consulting Provider: Anesthesiologist Reason for consultation: Regional block for post operative pain control 02/17/23 10:55 Consult to Discharge Planning Routine Comment: Consult to Physical Therapy Evaluate & Treat Comment: Physician Instructions: post op LUZ protocol Discharge provider: Nicole Brar PA-C Summary Hospital Course Discharge Diagnosis: Left hip osteoarthritis, s/p left total hip arthroplasty Hospital Course: Mr Bran's hospital course was unremarkable. On POD# 1 he was feeling well and wanted to go home. He was eating and voiding without difficulty and his pain was well-controlled with oral medication, including hydroxyzine. He had not yet been evaluated by PT at the time of my visit. Exam Vital Signs (past 8 hours): - 02/17/23 23:20 02/18/23 05:32 Temperature 98.5 F 97.7 F Pulse Rate 74 68 Respiratory Rate 19 18 Blood Pressure 124/59 L 127/57 L Pulse Oximetry 95 97 Oxygen Flow Rate 0 0 Oxygen Delivery Method Nasal Cannula Oxygen Flow Rate 0 Narrative Exam Narrative: 4/5 hip flexors, quadriceps, hamstrings on left; 5/5 DF, PF, EHL. Sensation to light touch intact throughout LLE. Calves soft, compressible, nontender and without palpable cords or masses. Aquacel dressing CDI. Objective Labs 02/18/23 06:08 Labs: Laboratory Results - last 24 hr 02/17/23 02/18/23 07:24 06:08 Hgb 13.1 L Hct 39.2 L SARS-CoV-2 (PCR) Negative [facility] Medical History Borderline hypertension Cataract COVID-19 virus infection (2019) Diverticulitis (~2016) Elevated WBCs (~1995) HLD (hyperlipidemia) Kidney stones Melanoma (~2016) Osteoarthritis Pneumonia Tingling of both feet Surgical History History of colonoscopy History of liver biopsy (~1995) History of total right hip replacement (10/05/19) Social History household members: spouse Smoking Status: Never smoker alcohol intake: never Discharge Assessment & Plan Assessment and Plan Assessment: Left hip osteoarthritis, s/p left total hip arthroplasty. Plan of Treatment: Discharge home after PT if PT feels he is safe and stable. ASA 81 mg BID x 6 weeks for VTE prophylaxis. Pt has most postop meds at home; will send Vistaril as well. Outpt pt. F/u in office in 2 weeks. Discharge Plan Discharge Plan Patient Disposition: Home Discharge orders & Medications Discharge Orders: Discharge (Order); Ordered 02/18/23 Ordered By: Nicole Brar Prescriptions: New hydroxyzine pamoate 25 mg Capsule 25 mg PO Q6HR PRN (Reason: Spasms) Qty: 60 0RF Continued acetaminophen [Tylenol Extra Strength] 500 mg Tablet 500 mg PO Q4H MDD 2000 PRN (Reason: Breakthrough Pain, Moderate) celecoxib 200 mg Capsule 200 mg PO DAILY rosuvastatin 5 mg Tablet 5 mg PO BEDTIME Follow up/Referrals: Brian Mendoza MD [Primary Care Provider] - Faith Oh MD [Physician] - As previously scheduled (Follow up with Bia Larson PA-C, on 02/27/2023 @ 10:[address] [facility] Diet/Activity/Treatments Diet: Diet as Tolerated Activity: Weightbearing as tolerated on left leg. Posterior hip precautions. Skin/Wound/Dressing Care Report to your healthcare provider any signs of infection, such as:: chills, fever, night sweats, unusual drainage and unusual redness Dressing: May shower. Leave Aquacel dressing in place until follow up in office. No bathing or otherwise soaking incision. Call the office if the dressing becomes saturated inside. Visit Report/Discharge Packet Instructions: DI for Hip Replacement Stand Alone Forms: Patient Portal/API, Surgery Discharge Discharge Data Primary Care Provider: Brian Mendoza Attending Provider: Faith Oh Quality VTE Deep Vein Thrombosis/Pulmonary Embolism Present on Admission: No
--- NOTE | 2023-02-18 08:18 | PT.OIE ---
Current Diagnoses Unilateral primary osteoarthritis, unspecified hip (02/17/23) Unilateral primary osteoarthritis, left hip (02/17/23) Pain in right hip (02/17/23) Past Medical History (Last Reviewed 02/17/23 @ 07:46 by Faith Oh MD) Borderline hypertension Cataract COVID-19 virus infection (2019) Diverticulitis (~2016) Elevated WBCs (~1995) HLD (hyperlipidemia) Kidney stones Melanoma (~2016) Osteoarthritis Pneumonia Tingling of both feet Past Surgical History (Last Reviewed 02/17/23 @ 07:46 by Faith Oh MD) History of colonoscopy History of liver biopsy (~1995) History of total right hip replacement (10/05/19) Visit Care Team Role Provider Type Raghu Hernández DO Other Providers Physician Specialty: Anesthesiology Address: [address] [place] [address] Email: Shadi Osborn MD Other Providers Physician Specialty: Anesthesiology Address: [address] [place] [address] Email: Brian Lundberg MD Other Providers Physician Specialty: Anesthesiology Address: [address] [place] [address], [address] Phone: Fax: Email: [email or web address] Peña MD Other Providers Physician Specialty: Anesthesiology Address: [address] [place] [id number] Phone: Fax: Email: Jorge Zamora MD Other Providers Physician Specialty: Anesthesiology Address: [address] [place] [id number] Email: Jeff Franco MD Other Providers Physician Specialty: Anesthesiology Address: [address] [place] [id number] Email: Monica Novoa MD Other Providers Physician Specialty: Anesthesiology Address: [address] [place] [address] Email: Christy Dai MD Other Providers Physician Specialty: Anesthesiology Address: Phone: Fax: Email: [email or web address] Tanisha Nguyen MD Other Providers Physician Specialty: Anesthesiology Address: [address] [place] [address], [phone] Email: Jeffery [place] MD Other Providers Physician Specialty: Anesthesiology Address: [address] [place] [address], [id number] Email: Brian Mendoza MD Family Provider Non-Staff Primary Care Provider Specialty: Medical Address: [address] [place], [address] Email: Faith Oh MD Attending Provider Physician Referring Provider Specialty: Orthopedics Orthopedic Surgery Address: [address] [place] [address], [phone] Email: [email or web address]
--- NOTE | 2023-02-18 08:40 | PT.IPTN ---
Current Diagnoses Unilateral primary osteoarthritis, unspecified hip (02/17/23) Unilateral primary osteoarthritis, left hip (02/17/23) Pain in right hip (02/17/23) Surgery Performed Operation Date: 02/17/23 07:45 Actual Procedures p Total Hip Arthroplasty posterior(Left) - Faith Oh MD Physical Therapy Treatment Note M2 PT-IP Current Condition Start: 02/17/23 11:25 Freq: NEEDED Status: Active Protocol: Document 02/17/23 13:39 TH (Rec: 02/17/23 13:50 TH [id number]) Physical Therapy Current Condition Current Condition Evaluation Date 02/17/23 Treatment Diagnosis POst op LUZ left M3 PT-IP Subjective Start: 02/17/23 11:25 Freq: NEEDED Status: Active Protocol: Document 02/18/23 09:13 TS (Rec: 02/18/23 09:35 TS [id number]) Subjective Physical Therapy Visit Type Type Treatment Note Visit Start Time 08:40 Visit Stop Time 09:20 Total Visit Minutes 30 Physical Therapy Visit Comments Patient Comments Pt reported some tightness in left quad, pain is doing better today. M4 PT-IP Mobility and Gait Start: 02/17/23 11:25 Freq: NEEDED Status: Active Protocol: Document 02/18/23 09:13 TS (Rec: 02/18/23 09:35 TS [id number]) PT-Bed Mobility Assessment Sit to Supine Sit to Supine Standby Assistance Scooting Scooting Up and Down in Bed Standby Assistance PT-Transfer Assessment Sit to and From Stand Sit to and from Stand Standby Assistance Equipment Transfer Assistive Device Front Wheeled Walker Comments Mobility Comments Pt found resting in chair, agreeable to PT session. Pt performed sit to stand SBA with FWW. He ambulated with FWW ~200' SBA in hallway step to gait and heavy leaning with UEs on FWW. He performed stairs x3 SBA with BUE handrail support, provided cues for stair sequencing. Pt performed sit to supine SBA with BUE support on bed and handrails, scooted to HOB SBA with BUE support. PT was left in bed with call light nearby and all needs met. Gait Assessment Gait Gait Assistance Required: Standby Assistance Distance (Feet) 200 Assistive Devices Assistive Device Gait Belt,Front Wheeled Walker Orthotic/Prosthetic Devices or Brace: No Gait Deviations General Gait Pattern Antalgic,Decreased Stride Length,Decreased Feet Clearance,Step-to Gait Factors Limiting Gait Function Factors Limiting Gait Function Decreased Strength,Pain Comments Gait Comments Pt ambualted in hallway ~200' SBA, no signs of buckling or LOB, reported some lightheadedness. Stair Climbing Assessment Evaluation Level of Assist On Stairs Standby Assistance Devices Stair Climbing Assistive Devices Left Railing,Right Railing Technique/Endurance Stair Climbing Direction Ascend and Descend Stair Climbing Technique Step to Step Number of Steps Climbed 3 Comments Stair Climbing Comments Pt performed stairs SBA with BUE handrail assist, no bucklling or LOB of LEs. PT-Balance Assessment Sitting Balance and Reactions Static Sitting Balance Ability Normal Dynamic Sitting Balance Ability Good Standing Balance and Reactions Static Standing Balance Ability Good Dynamic Standing Balance Ability Fair M5 PT-IP Objective Assessments Start: 02/17/23 11:25 Freq: NEEDED Status: Active Protocol: Document 02/17/23 13:39 TH (Rec: 02/17/23 13:50 TH [id number]) Orientation Orientation/Cognition Level of Alertness Alert Orientation Name,Place,Situation Gross Range of Motion Upper Extremity ROM Assessment Within Functional Limits Lower Extremity ROM Assessment Within Functional Limits Strength Upper Extremity Strength Assessment Within Functional Limits Comments Strength Comments LEs numb unable to formally assess Coordination Assessment Gross Coordination Gross Coordination WNL Sensation Assessment Sensation Sensation Description Numbness M6 PT-IP Treatment Start: 02/17/23 11:25 Freq: NEEDED Status: Active Protocol: Document 02/18/23 09:13 TS (Rec: 02/18/23 09:35 TS [id number]) Physical Therapy Treatment Education Education Provided Precautions Other Treatments Other Treatment Performed Pt recalled 3/3 precautions. M7 PT-IP Assessment and Plan Start: 02/17/23 11:25 Freq: NEEDED Status: Active Protocol: Document 02/18/23 09:13 TS (Rec: 02/18/23 09:35 TS [id number]) PT Summary Assessment and Plan Potential Rehabilitation Potential Excellent Status of Condition at Evaluation Stable Summary Impairments Activity Tolerance Assessment Summary Pt progressed to standing this session SBA with FWW, he progressed his ambulation to SBA ~200' in hallway with slow step to gait, no signs of buckling or LOB. He performed stairs x3 SBA with BUE handrail assist, required cues for sequencing. PT is recommending return home with assist from spouse. Pt has spouse who will be home with him 01/06 and have all DME needs. Goals Bed Mobility Goal Minimal Assistance Transfer Goal Independent Gait Goal Standby Assistance Gait Distance 100 + feet Other Goals up/down 3 steps with step too pattern using rail SBA Days to Meet Goals 5 Frequency of Treatment Frequency Of Treatment Twice a Day Treatment Plan Physical Therapy Treatment Plan Bed Mobility Training,Transfer Training,Gait Training, Therapeutic Exercise,Balance Retraining,Post Op Education, Neuromuscular Re-ed,Manual Therapy Other Recommendations and Next Treatment review precautions, repeat Focus stairs Precautions Posterior Hip Precautions No Hip Flexion > 90 degrees,No Hip Internal Rotation,No Hip Adduction Recommendations To Nursing Amount of Assist Needed Standby Assistance Discharge Recommendations PT Discharge Recommendations Home with Assistance Equipment Needed for Home Before recommend FWW/ pt has 4WW Discharge Transportation Needs at Discharge Private Vehicle
[2023-02-18] MEDS: CELECOXIB 200 MG CAPSULE PO (08:44)
[2023-02-18] MEDS: ASPIRIN EC 81 MG TABLET PO (08:44)
[2023-02-18] MEDS: DOCUSATE 100 MG CAPSULE PO (08:44)
[2023-02-18 09:29] VITALS: BP 131/56; PULSE 82; RESP 16; TEMP 36.9; O2SAT 95
--- NOTE | 2023-02-18 13:20 | PC.NURSE ---
Pt is dressed and ready for discharge home with Spouse. Went over d/c instructions with Pt and Spouse-d/c meds, stroke education, s/s of infection, following hip precautions all discussed with Pt. Pt has a follow up appointment already scheduled. Reminded Pt not to drive while on narcotics and to drink plenty of fluids to prevent constipation or dehydration. Pt denied further questions and was taken out via w/c by POST [facility]UTE CARE NURSE to POV with Spouse and all belongings.
== END 2023-02-18 13:23 | disposition home or self-care (01) ==
LOC: OR 06:04 → AC 06:04
PROVIDERS: Family Provider Family Medicine; PCP Family Medicine; Referring Provider Orthopaedic Surgery; Visit Provider Orthopaedic Surgery
PROC: 0SRB0JZ Replacement of Left Hip Joint with Synthetic Substitute, Open Approach (ICD-10-PCS; CPT 27130; principal; 2023-02-17 07:45)
DX: M16.12 Unilateral primary osteoarthritis, left hip (principal); Z20.822 Contact with and (suspected) exposure to COVID-19
CPT/HCPCS: 27130; 36415; 72170; 73502; 85014; 85018; 87635; 97116; 97161; 97530; C1776; C9803; C9290; J0171; J0690; J1100; J2250; J2405; J2704; J3010